=== PATIENT | female | born 1965 | race Hispanic/Latino ===

== ENCOUNTER 2024-12-17 06:57 | Day surgery (SDC) | payer BC ==
[~2024-12-17] VITALS: Ht 157.5 cm; Wt 86.2 kg
[2024-12-17] VITALS (10 sets, daily range): BP systolic 111–141; BP diastolic 52–74; PULSE 74–88; RESP 15–19; TEMP 96.8–97.6
[~2024-12-17 06:57] MED LIST: EMPA10TA PO; FOLI0.8C PO; KRILL OIL PO; METF-444 PO; MULT-660 PO; OMEP20CA12 PO; PRAV20TA59 PO; SEMA2PEN SQ; [UNRECOGNIZED DRUG - CODE] PO
[2024-12-17] MEDS: 0.9%NACL 1000ML 1,000 ML IV ONE (08:34)
[2024-12-17] MEDS ORDERED: proPOFol 10 MG/ML 20ML VIAL IV ONE (09:06)
--- NOTE | 2024-12-17 10:23 | NUR ---
Full and complete discharge instructions given to Patient and Family both verbally and in writing. Explained GI procedure precautions and follow up. All questions answered. PIV removed with catheter tip intact. Home with Family W/C to POV.
== END 2024-12-17 10:30 | disposition home or self-care (01) ==
LOC: DAH 06:57
PROVIDERS: ATTEND Internal Medicine Gastroenterology
DX: R13.10 Dysphagia, unspecified (principal); I85.00 Esophageal varices without bleeding; K29.50 Unspecified chronic gastritis without bleeding; K31.89 Other diseases of stomach and duodenum; K31.819 Angiodysplasia of stomach and duodenum without bleeding; K74.60 Unspecified cirrhosis of liver; E11.9 Type 2 diabetes mellitus without complications; K59.04 Chronic idiopathic constipation; K64.1 Second degree hemorrhoids; R77.2 Abnormality of alphafetoprotein; R12 Heartburn; K64.5 Perianal venous thrombosis; E66.9 Obesity, unspecified; Z79.899 Other long term (current) drug therapy; Z79.84 Long term (current) use of oral hypoglycemic drugs; Z86.0100 Personal history of colon polyps, unspecified; Z87.898 Personal history of other specified conditions; Z68.35 Body mass index [BMI] 35.0-35.9, adult; Z90.49 Acquired absence of other specified parts of digestive tract; Z98.890 Other specified postprocedural states
CPT/HCPCS: 82948; 81025; 43239; J7030; J2704; A4620; A4215; A4223; A7002; A4222; A4221; A4663; A4606; J3490

== ENCOUNTER 2025-04-27 05:40 | Day surgery (SDC) | payer BC ==
[~2025-04-27] VITALS: Ht 157.5 cm; Wt 91.6 kg
[2025-04-27] VITALS (10 sets, daily range): BP systolic 102–160; BP diastolic 52–74; PULSE 71–95; RESP 13–18; TEMP 97.4–97.6
[~2025-04-27 05:40] MED LIST changes: +CYAN-106 PO; -EMPA10TA PO; +FERR-72 PO; -KRILL OIL PO; -MULT-660 PO; -[UNRECOGNIZED DRUG - CODE] PO
[2025-04-27] MEDS ORDERED: LIDOCAINE HCL 1% 20 ML VIAL ONE (07:14)
== END 2025-04-27 08:30 | disposition home or self-care (01) ==
LOC: ENDO 05:40 → DAH 05:40 → ENDO 08:30
PROVIDERS: ATTEND Internal Medicine Gastroenterology
DX: R19.5 Other fecal abnormalities (principal); K57.30 Diverticulosis of large intestine without perforation or abscess without bleeding; D62 Acute posthemorrhagic anemia; D64.9 Anemia, unspecified; E11.9 Type 2 diabetes mellitus without complications; E66.9 Obesity, unspecified; R32 Unspecified urinary incontinence; K59.04 Chronic idiopathic constipation; R14.0 Abdominal distension (gaseous); I85.10 Secondary esophageal varices without bleeding; K74.60 Unspecified cirrhosis of liver; R77.2 Abnormality of alphafetoprotein; R12 Heartburn; Z90.49 Acquired absence of other specified parts of digestive tract; Z68.36 Body mass index [BMI] 36.0-36.9, adult; Z79.899 Other long term (current) drug therapy
CPT/HCPCS: 45378; 82948; J2704; A4620; A4215 ×2; A4223; A4222; A4221; A4663; A4606; J3490

== ENCOUNTER → 2025-05-06 | Outpatient (CLI) | payer BC ==
[2025-05-06 09:45] LABS: IMMATURE GRANULOCYTE ABSOLUTE 0.00 K/uL (0-1); NUCLEATED RED BLOOD CELLS 0.0 % (0.0-0.19); PLATELET COUNT (AUTO) 100 K/uL (130-400); RED BLOOD CELL COUNT(AUTO) 3.22 MIL/uL (4.00-5.50); RED CELL DISTRIBUTION WIDTH 20.7 % (11.0-15.5); WHITE BLOOD COUNT (AUTO) 3.1 K/uL (4.8-10.8)
[2025-05-06 09:58] LABS: ASPARTATE AMINOTRANSFERASE 70.0 U/L (10-37); CREATININE 0.7 mg/dL (0.5-1.0); GLOMERULAR FILTR. RATE CALC 101.0 mL/min (>90); GLUCOSE,RANDOM 287.0 mg/dL (70-105); SODIUM SERUM 137.0 mmol/L (136-145); TOTAL PROTEIN, SERUM 7.5 g/dL (6.0-8.3); UREA NITROGEN, BLOOD 11.0 mg/dL (7-18)
[2025-05-06 10:02] LABS: INR 1.15 (0.85-1.15)
--- NOTE | 2025-05-06 10:45 | NUR ---
U/S GD PARACENTESIS PROCEDURE PERFORMED BY DR Mansi HARE. PUNCTURE SITE LLQ AND PATIENT TOLERATED PROCEDURE WELL. TOTAL REMOVED 1.7LITERS OF CLOUDY YELLOW FLUID. SPECIMEN SENT TO LAB. END OF PROCEDURE AT 1015. CATHETER REMOVED AND DRESSING APPLIED. NO BLEEDING NOTED. DISCHARGE INSTRUCTIONS GIVEN TO PATIENT AND VERBALIZED UNDERSTANDING. DISCHARGED VIA AMBULATION AT 1045. AAO X3 WITH NO C/O PAIN.
--- NOTE | 2025-05-06 11:29 | HMCIMG ---
US ABDOMINAL PARACENTESIS IR REASON: ASCITES Procedure performed by Dr Lindsay Molina MD PGY2 with Dr Osullivan TECHNIQUE: Paracentesis was performed with ultrasound guidance. The puncture site was selected in the Right lower quadrant and overlying skin prepped and draped in a sterile fashion. 1% Xylocaine infiltration was performed. Catheter was placed in the fluid using trocar technique. 1.7 liters were removed. Fluid sample was submitted for laboratory evaluation. The patient showed no evidence of complication during the procedure. Patient tolerated procedure well IMPRESSION: 1. Ultrasound-guided paracentesis.
[2025-05-06 13:51] LABS: TOTAL PROTEIN,BODY FLUID 0.9 g/dL
[2025-05-06 13:53] LABS: APPEARANCE BODY FLUID CLOUDY (CLEAR); SPECIMENTYPE,BODY FLUID ASCITES
[2025-05-06 13:54] LABS: COLOR,BODY FLUID PINK (LT YELLOW); TOTAL VOLUME,BODY FLUID 1800 mL
[2025-05-06 13:55] LABS: ALBUMIN,BODY FLUID 0.3 g/dL
[2025-05-06 14:02] LABS: BODY FLUID RBC 3594 /cu. mm.; BODY FLUID WBC 285 /cu. mm.
[2025-05-06 16:43] LABS: BF LYMPHOCYTE 62 %; BF MACROPHAGE 30; BF MONOCYTE 3 %; BF NEUTROPHIL 4.0 %; BF OTHER CELLS 1; BF TOTAL CELLS COUNTED 100
== END ==
LOC: RAH 09:19
PROVIDERS: ATTEND Internal Medicine Gastroenterology
DX: R18.8 Other ascites (principal); K74.60 Unspecified cirrhosis of liver; E11.9 Type 2 diabetes mellitus without complications; I85.00 Esophageal varices without bleeding; K59.04 Chronic idiopathic constipation; E66.9 Obesity, unspecified; Z68.38 Body mass index [BMI] 38.0-38.9, adult; Z86.2 Personal history of diseases of the blood and blood-forming organs and certain disorders involving the immune mechanism; Z90.49 Acquired absence of other specified parts of digestive tract; Z79.899 Other long term (current) drug therapy; Z98.890 Other specified postprocedural states
CPT/HCPCS: 49083; 84157; 80053; 85025; 89051; 85610; 85730; 87071; 87205; 82042; 36415; 88108; 88305; C1729